=== PATIENT | female | born 1960 | race Caucasian/White ===

== ENCOUNTER 2021-12-12 18:42 | Emergency (ER) | payer MEDICAID ==
[2021-12-12] MEDS ORDERED: Sodium Chloride 0.9% 10 ML Syringe FLUSH PRN (19:00)
[2021-12-12 19:59] LABS: ANION GAP 13.9 mmol/L (5-15); CHLORIDE,CL 102 mmol/L (98-107); SODIUM,NA 136 mmol/L (136-145)
[2021-12-12 20:10] LABS: ESTIMATED GFR 90 mL/min (>=60)
[2021-12-12] MEDS ORDERED: Lidocaine 2% Jelly 5 ML Tube ONE (21:39)
[2021-12-12] MEDS ORDERED: HYDROmorphone 1 MG/ML Syringe IVPUSH ONE (21:40)
[2021-12-12] MEDS ORDERED: Lidocaine 2% Jelly 5 ML Tube MUCMEM SCH (21:45)
[2021-12-13] MEDS ORDERED: Ondansetron 4 MG Tab.DIS PO ONE (01:50)
[2021-12-13] MEDS ORDERED: Ondansetron 4 MG Tab.DIS ONE (01:51)
== END 2021-12-13 02:50 | disposition home or self-care (01) ==
LOC: KA.ED 18:42
DX: K59.00 Constipation, unspecified (principal); R10.84 Generalized abdominal pain; Z91.048 Other nonmedicinal substance allergy status; Z88.2 Allergy status to sulfonamides; Z88.8 Allergy status to other drugs, medicaments and biological substances
CPT/HCPCS: 36415; 71045; 74021; 80053; 85025; 96374; 99284; 99284-25; A9270-GY; J1170; J3490

== ENCOUNTER 2022-03-05 12:55 | Emergency (ER) | payer MEDICAID ==
[2022-03-05] MEDS ORDERED: Sodium Chloride 0.9% 10 ML Syringe FLUSH PRN (13:24)
[2022-03-05] MEDS ORDERED: HYDROmorphone 1 MG/ML Syringe IVPUSH ONE (13:25)
[2022-03-05] MEDS ORDERED: Ondansetron 4 MG/2 ML SDV IVPUSH ONE (13:25)
[2022-03-05] MEDS: Sodium Chloride 0.9% 1,000 ML IV ONE ×2 (13:34→13:40)
[2022-03-05 13:37] LABS: ANION GAP 17.1 mmol/L (5-15)
[2022-03-05] MEDS ORDERED: Iopamidol 755 Mg/ML 75 ML Bottle IVPUSH ONE (14:08)
[2022-03-05] MEDS ORDERED: Sodium Chloride 0.9% 50 ML IV SCH (14:15)
[2022-03-05] MEDS ORDERED: Lidocaine 4% Top Soln 50 ML Bottle MUCMEM ONE (15:24)
[2022-03-05] MEDS ORDERED: Lidocaine 2% Jelly 5 ML Tube TOP ONE (15:43)
== END 2022-03-05 19:16 | disposition home or self-care (01) ==
LOC: KA.ED 13:01
DX: K59.00 Constipation, unspecified (principal); K52.89 Other specified noninfective gastroenteritis and colitis; E03.9 Hypothyroidism, unspecified; Z91.048 Other nonmedicinal substance allergy status; Z88.2 Allergy status to sulfonamides; Z79.82 Long term (current) use of aspirin; Z79.899 Other long term (current) drug therapy
CPT/HCPCS: 74177; 80053; 84484; 85025; 96361; 96374; 96375; 99284; J1170; J2405; J3490; J7030; Q9967; A9270-GY